=== PATIENT | male | born 1995 | race African-American/Black ===

== ENCOUNTER 2018-10-04 09:24 | Emergency (ER) | payer OTHER, MEDICAID ==
[~2018-10-04] VITALS: Ht 175.3 cm; Wt 80.0 kg
[2018-10-04 11:55] VITALS: BP 150/73
== END 2018-10-04 12:13 | disposition home or self-care (01) ==
LOC: ER 09:24
DX: F12.188 Cannabis abuse with other cannabis-induced disorder (principal)
CPT/HCPCS: 99283